=== PATIENT | male | born 1990 | race Caucasian/White ===

== ENCOUNTER 2016-06-20 10:18 | Emergency (ER) | payer SELFPAY ==
[~2016-06-20] VITALS: Ht 177.8 cm; Wt 72.6 kg
[2016-06-20 10:31] VITALS: BP 119/72
--- NOTE | 2016-06-20 11:32 | Emergency Room Report ---
History of Present Illness General Chief Complaint: Wound Recheck/Suture Removal Source: Patient Present Illness HPI [id number] here for suture removal. Placed 14 days ago in [place] after accidental fall. Denies fever/chills, pus drainage or sign of infection. No PMHx. Feels well otherwise. Allergies: Coded Allergies: No Known Allergies (Unverified , 06/20/16) Patient History Past Medical History: none Past Surgical History: none Pertinent Family History: none Social History: Denies: alcohol use, drug use, smoking Immunizations: UTD Reviewed Nursing Documentation: PMH: Agreed, PSxH: Agreed Nursing Documentation-PMH Past Medical History: No Stated History Review of Systems All Other Systems: negative except mentioned in HPI Physical Exam Vital Signs Date Time Temp Pulse Resp B/P Pulse Ox O2 Delivery O2 Flow Rate FiO2 06/20/16 10:21 97.9 82 16 119/72 97 Room Air Sp02 EP Interpretation: reviewed, normal General Appearance: normal inspection, well appearing, no apparent distress, alert Head: normocephalic, other - 2cm linear laceration, healing well, to left forehead. [address] No wound dehiscence or sign of infection Eyes: bilateral eye EOMI, bilateral eye PERRL ENT: normal ENT inspection, hearing grossly normal, normal voice Neck: normal inspection, full range of motion, supple, no bony tend Respiratory: normal inspection, lungs clear, normal breath sounds, no respiratory distress, no retraction, no wheezing Cardiovascular #1: regular rate, rhythm, no edema Gastrointestinal: normal inspection, normal bowel sounds, non tender, soft, no guarding, no hernia Genitourinary: no CVA tenderness Musculoskeletal: normal inspection, back normal, normal range of motion, Olivia' s Sign negative Neurologic: normal inspection, alert, oriented x3, responsive, word processing specialist III-XII nml as tested, motor strength/tone normal, speech normal Psychiatric: normal inspection, judgement/insight normal, mood/affect normal Skin: normal inspection, normal color, no rash Medical Decision Making Diagnostic Impression: Primary Impression: Encounter for removal of sutures ER Course 3 sutures removed without complication no sign of infection Post suture removal info given DC home Last Vital Signs Date Time Temp Pulse Resp B/P Pulse Ox O2 Delivery O2 Flow Rate FiO2 06/20/16 10:53 97.9 82 16 119/72 97 Room Air Status: improved Disposition: HOME, SELF-CARE Condition: Improved Referrals: NOT CHOSEN IPA/,REFERRING (PCP) Patient Instructions: Suture Removal, Care After ZAID SANDOVAL M.D. Jun 20, 2016 11:31
== END 2016-06-20 10:53 | disposition home or self-care (01) ==
LOC: EMR 10:50
DX: S01.81XD Laceration without foreign body of other part of head, subsequent encounter (principal); W19.XXXD Unspecified fall, subsequent encounter; Z48.02 Encounter for removal of sutures
CPT/HCPCS: 99282